=== PATIENT | male | born 1985 | race Caucasian/White ===

== ENCOUNTER 2017-12-13 22:12 | Emergency (ER) | payer BC ==
[2017-12-13] MEDS ORDERED: oxyCODONE/Acetamin 5/325 MG* TAB PO ONE (22:54)
[2017-12-13] MEDS ORDERED: Ibuprofen TAB* 800 MG PO ONE (22:54)
[2017-12-13] MEDS ORDERED: Clindamycin CAP* 150 MG PO ONE (22:55)
[2017-12-13] MEDS ORDERED: Amoxicillin/Clavulanate TAB* 875 MG PO ONE (23:20)
[2017-12-13 23:38] VITALS: BP 0/0
--- NOTE | 2017-12-14 03:01 | ED ---
Andi Bautista Rebecca, scribed for Miracle Verdin MD on 12/13/17 at 2240 . Complex/Multi-Sys Presentation - HPI Summary HPI Summary: Pt is a 32 y/o M who presents to ED c/o lower right dental pain and facial swelling for just over a week. Symptoms had been improving then worsened in the last 3 days. On triage, pain is moderate, ranked 5/10 and characterized as throbbing and aching. Sx aggravated by laying down and alleviated by nothing. Is planning on seeing a dentist. - History Of Current Complaint Chief Complaint: EDDentalPain Time Seen by Provider: 12/13/17 22:36 Hx Obtained From: Patient Onset/Duration: Lasting Weeks - 1 week, Still Present, Worse Since - 3 days Severity Currently: Moderate - 5/10 Location: Pain At: - Lower right dental pain Character: Throbbing Aggravating Factor(s): Laying down Alleviating Factor(s): Nothing Associated Signs And Symptoms: Positive: Other - Facial swelling - Allergies/Home Medications Allergies/Adverse Reactions: Allergies Allergy/AdvReac Type Severity Reaction Status Date / Time clindamycin Allergy Hives Verified 12/13/17 22:33 PMH/Surg Hx/FS Hx/Imm Hx Endocrine/Hematology History: Denies: Hx Diabetes Cardiovascular History: Denies: Hx Coronary Artery Disease, Hx Hypertension - Immunization History Date of Tetanus Vaccine: utd Date of Influenza Vaccine: none Infectious Disease History: No Infectious Disease History: Denies: Traveled Outside the [place] in Last 30 Days - Family History Known Family History: Positive: Hypertension - Social History Alcohol Use: Weekly Substance Use Type: Reports: None Smoking Status (MU): Light Every Day Tobacco Smoker Review of Systems Negative: Fever Positive: Dental Pain, Other - Lower right facial swelling All Other Systems Reviewed And Are Negative: Yes Physical Exam - Summary Physical Exam Summary: VITAL SIGNS: Reviewed. GENERAL: ~Patient is a well-developed and nourished male who is lying comfortable in the stretcher. Patient is not in any acute respiratory distress. HEAD AND FACE: No signs of trauma. No ecchymosis, hematomas or skull depressions. No sinus tenderness. EYES: PERRLA, EOMI x 2, No injected conjunctiva, no nystagmus. EARS: Hearing grossly intact. Ear canals and tympanic membranes are within normal limits. MOUTH: Mild swelling and severe decay of the last 2 molars in the lower right. NECK: Supple, trachea is midline, no adenopathy, no JVD, no carotid bruit, no c- spine tenderness, neck with full ROM. CHEST: Symmetric, no tenderness at palpation LUNGS: Clear to auscultation bilaterally. No wheezing or crackles. CVS: Regular rate and rhythm, S1 and S2 present, no murmurs or gallops appreciated. EXTREMITIES: FROM in all major joints, no edema, no cyanosis or clubbing. NEURO: Alert and oriented x 3. No acute neurological deficits. Speech is normal and follows commands. SKIN: Dry and warm Triage Information Reviewed: Yes Vital Signs On Initial Exam: Initial Vitals Temp Pulse Resp BP Pulse Ox 98.1 F 97 20 150/92 97 12/13/17 22:15 12/13/17 22:15 12/13/17 22:15 12/13/17 22:15 12/13/17 22:15 Vital Signs Reviewed: Yes Diagnostics - Vital Signs Vital Signs Temp Pulse Resp BP Pulse Ox 12/13/17 22:15 98.1 F 97 20 150/92 97 - Laboratory Lab Statement: Any lab studies that have been ordered have been reviewed, and results considered in the medical decision making process. Complex Multi-Symp Course/Dx Assessment/Plan: Pt is a 32 y/o M who presents to ED c/o moderate lower right dental pain and facial swelling for just over a week, improving then worsening 3 days ago, characterized as throbbing/aching. Sx aggravated by laying down. Is planning on seeing a dentist. In the ED course, pt was given Augmentin, Cleocin , Motrin and Percocet. He will be D/C to home with Dx of dental caries and gingivitis with Rx for Motrin and Augmentin with a follow up with dentistry on Friday. He understands and agrees. Allergy noted. - Diagnoses Provider Diagnoses: Dental caries, Gingivitis Discharge - Sign-Out/Discharge Documenting (check all that apply): Discharge/Admit/Transfer - Discharge - Discharge Plan Condition: Stable Disposition: HOME Prescriptions: Amoxicillin/Clavulanate TAB* [Augmentin TAB 875*] 875 mg PO BID #14 tab Ibuprofen TAB* [Motrin TAB* 800 MG] 800 mg PO Q6H PRN #30 tab PRN Reason: Pain Patient Education Materials: Gingivitis (ED) Referrals: No Primary Care Phys,NOPCP [Primary Care Provider] - [facility] [Outside] - 12/15/17 MARY CALVIN [Doctor of Dental Surgery] - 12/15/17 (Follow up with dentistry on Friday. ) Additional Instructions: RETURN TO ED FOR ANY NEW OR WORSENING SYMPTOMS. The documentation as recorded by the Andi dee Rebecca accurately reflects the service I personally performed and the decisions made by Lambert miller Abdul, MD.
== END 2017-12-13 23:37 | disposition home or self-care (01) ==
LOC: ED 22:12
DX: K02.9 Dental caries, unspecified (principal); K05.10 Chronic gingivitis, plaque induced; F17.200 Nicotine dependence, unspecified, uncomplicated; Z88.3 Allergy status to other anti-infective agents
CPT/HCPCS: 99282; A9270-GY

== ENCOUNTER 2018-12-30 17:22 | Emergency (ER) | payer BC ==
[2018-12-30] MEDS ORDERED: Lidocaine 1%** 5 ML VIAL INJ ONE (18:15)
[2018-12-30 18:28] VITALS: BP 121/77
--- NOTE | 2018-12-30 18:41 | UC ---
Laceration HPI - HPI Summary HPI Summary: 33 yo male lacerated his right index finger just prior to arrival when a knife closed on it was working on a door jam Last Td > 10 yrs ago - History Of Current Complaint Chief Complaint: UCLaceration Stated Complaint: FINGER LACERATION Time Seen by Provider: 12/30/18 18:09 Hx Obtained From: Patient Laceration Location: Finger - RIF Mechanism Of Injury: Sharp Trauma Pain Intensity: 0 Pain Scale Used: 0-10 Numeric Aggravating Factors: Nothing - Allergies/Home Medications Allergies/Adverse Reactions: Allergies Allergy/AdvReac Type Severity Reaction Status Date / Time clindamycin Allergy Hives Verified 12/30/18 17:36 Home Medications: Home Medications NK [No Home Medications Reported] 12/30/18 [History Confirmed 12/30/18] PMH/Surg Hx/FS Hx/Imm Hx Previously Healthy: Yes - Surgical History Surgical History: None - Family History Known Family History: Positive: Hypertension Negative: Cardiac Disease, Diabetes - Social History Alcohol Use: Weekly Substance Use Type: None Smoking Status (MU): Former Smoker Type: Cigarettes Review of Systems All Other Systems Reviewed And Are Negative: Yes Constitutional: Positive: Negative Skin: Positive: Negative Eyes: Positive: Negative ENT: Positive: Negative Respiratory: Positive: Negative Cardiovascular: Positive: Negative Gastrointestinal: Positive: Negative Genitourinary: Positive: Negative Motor: Positive: Negative Neurovascular: Positive: Negative Musculoskeletal: Positive: Negative Neurological: Positive: Negative Psychological: Positive: Negative Physical Exam Triage Information Reviewed: Yes Appearance: Well-Appearing, No Pain Distress, Well-Nourished Vital Signs: Initial Vital Signs Temp 98.6 F 12/30/18 17:33 Pulse 71 12/30/18 17:33 Resp 18 12/30/18 17:33 BP 121/77 12/30/18 17:33 Pulse Ox 97 12/30/18 17:33 Vital Signs Reviewed: Yes Eyes: Positive: Conjunctiva Clear ENT: Positive: Hearing grossly normal. Negative: Nasal congestion, Nasal drainage, Trismus, Muffled voice, Hoarse voice Neck: Positive: Supple, Nontender, No Lymphadenopathy Respiratory: Positive: Lungs clear, Normal breath sounds, No respiratory distress, No accessory muscle use Cardiovascular: Positive: RRR, No Murmur Musculoskeletal: Positive: ROM Intact, No Edema Neurological: Positive: Alert Psychological Exam: Normal Skin Exam: Normal Laceration Repair - Laceration Repair 1 Description: Linear : No Repair Necessary Laceration Size After Repair: Length (cm) - 2.1, Width (mm) - 3, Depth (mm) - 2 Modified For Repair: No Type Injection: Local Anesthesia Used: 1.0% Lido Cleansing Completed Via Routine Prep: Yes Irrigation With Pressure Irrigation Device: Yes Closure Method: Single Layer Suture Of: Skin Suture Type: Nylon - 4 5-0 nylon Laceration Course/Dx - Diagnosis Provider Diagnosis: Laceration of right index finger Discharge - Sign-Out/Discharge Documenting (check all that apply): Patient Departure All imaging exams completed and their final reports reviewed: No Studies - Discharge Plan Condition: Improved Disposition: HOME Patient Education Materials: Care For Your Stitches (DC) Referrals: No Primary Care Phys,NOPCP [Primary Care Provider] - Additional Instructions: starting tomorrow gently clean with soap and water gently dry or air dry apply a thin film of antibiotic oint and bandaid (at work) If you are at home and can keep it clean you may keep it open to air sutures out in about 7 days recheck for concerns of infection - Billing Disposition and Condition Condition: IMPROVED Disposition: Home
[2018-12-30] MEDS ORDERED: Tetan/Diph/Pertus SYR(Tdap)* 0.5 ML SYR(BOOSTRIX) use SYR IM ONE (18:44)
== END 2018-12-30 18:59 | disposition home or self-care (01) ==
LOC: UCEAST 17:22
DX: S61.210A Laceration without foreign body of right index finger without damage to nail, initial encounter (principal); W26.0XXA Contact with knife, initial encounter; Y93.89 Activity, other specified; Y92.9 Unspecified place or not applicable; Z88.1 Allergy status to other antibiotic agents; Z87.891 Personal history of nicotine dependence
CPT/HCPCS: 12001; 90471; 90715; 99211; G0463